=== PATIENT | male | born 1945 | race Caucasian/White ===

== ENCOUNTER 2025-03-19 07:15 | Day surgery (SDC) | payer MEDICARE, MEDICAID ==
[~2025-03-19] VITALS: Ht 165.1 cm; Wt 70.0 kg
[2025-03-19] VITALS (7 sets, daily range): BP systolic 131–171; BP diastolic 62–81; PULSE 55–65
[~2025-03-19 07:15] MED LIST: ASPI-1444 PO; ATOR20TA PO; AZEL23SP2 NASAL; CHL25 PO; CHOL500013 PO; FERR325T27 PO; LISI-894 PO; MONT-35 PO; SODIUM CHLORIDE 0.9% 1,000 ML ONE
[2025-03-19 07:45] LABS: PLATELET COUNT (AUTO) 162 K/uL (150-450); RED BLOOD CELL COUNT(AUTO) 4.19 MIL/uL (4.50-5.90); RED CELL DISTRIBUTION WIDTH 15.1 % (11.5-14.5); WHITE BLOOD COUNT (AUTO) 6.6 K/uL (4.5-11.0)
[2025-03-19] MEDS ORDERED: METO25 PO (07:49)
[2025-03-19] MEDS ORDERED: ISOS30TA92 PO (07:49)
[2025-03-19 07:55] LABS: CALCIUM, TOTAL 8.6 mg/dL (8.8-10.5); CREATININE 1.39 mg/dL (0.60-1.30); GLOMERULAR FILTR. RATE CALC 49.0 mL/min (>60); GLUCOSE,RANDOM 103.0 mg/dL (70-110); SODIUM SERUM 139.0 mmol/L (136-145); UREA NITROGEN, BLOOD 20.0 mg/dL (7-18)
[2025-03-19 07:59] LABS: ASPARTATE AMINOTRANSFERASE 17.0 U/L (15-37); TOTAL PROTEIN, SERUM 7.1 g/dL (6.4-8.2)
[2025-03-19] MEDS ORDERED: VERAPAMIL HCL 2.5 MG/ML 2 ML VIAL ONE (08:08)
[2025-03-19] MEDS ORDERED: HEPARIN SODIUM 1000 UNITS/NS 1,000 ML ONE (08:09)
[2025-03-19] MEDS ORDERED: LIDOCAINE/PF 1% 30 ML VIAL ONE (08:09)
[2025-03-19] MEDS ORDERED: SODIUM BICARBONATE 50 MEQ/50 ML VIAL ONE (08:09)
[2025-03-19] MEDS ORDERED: NITROGLYCERIN 50 MG/D5% WATER 250 ML ONE ×2 (08:09→09:02)
[2025-03-19] MEDS: SODIUM CHLORIDE 0.9% 1,000 ML IV ONE (08:14)
[2025-03-19] MEDS: IOHEXOL 300 MG/ML 100 ML VIAL IARTER ONE (09:42)
[2025-03-19] MEDS: VERAPAMIL HCL 2.5 MG/ML 2 ML VIAL IARTER ONE (09:43)
[2025-03-19] MEDS: HEPARIN SODIUM,PORCINE 1,000 UNITS/ML 10 ML VIAL IARTER ONE (09:43)
[2025-03-19] MEDS: LIDOCAINE 1% 30 ML/SOD BICARB 8.4% 4 ML SQ ONE (09:43)
[2025-03-19] MEDS: NITROGLYCERIN/D5W 50 MG/250 ML IV BOTTLE IARTER ONE (09:44)
[2025-03-19] MEDS: HEPARIN SODIUM 1000 UNITS/NS 1,000 ML IARTER ONE (09:45)
== END 2025-03-19 12:30 | disposition home or self-care (01) ==
LOC: CATHLAB 07:15
PROVIDERS: ATTEND Internal Medicine Cardiovascular Disease
DX: R07.9 Chest pain, unspecified (principal); I25.10 Atherosclerotic heart disease of native coronary artery without angina pectoris; E11.9 Type 2 diabetes mellitus without complications; J44.9 Chronic obstructive pulmonary disease, unspecified; E78.5 Hyperlipidemia, unspecified; E78.00 Pure hypercholesterolemia, unspecified; I10 Essential (primary) hypertension; Z98.890 Other specified postprocedural states; Z87.891 Personal history of nicotine dependence; Z79.899 Other long term (current) drug therapy
CPT/HCPCS: 93458; 80053; 85025; 85610; 85730; 36415; 93005; J1644; J3490 ×4; J7030